=== PATIENT | female | born 1970 | race American Indian/Alaskan Native ===

== ENCOUNTER 2016-09-30 12:11 | Emergency (ER) | payer MEDICAID, MEDICARE ==
[2016-09-30] MEDS ORDERED: DUONEB *Not for PRN Use IH ONE (12:23)
[2016-09-30] MEDS ORDERED: BENADRYL IV ONE (12:23)
--- NOTE | 2016-09-30 12:23 | Emergency Department Report ---
Chief Complaint: Allergic Reaction Stated Complaint: ALLERGIC TO OATS Time Seen by Provider: 09/30/16 12:20 - HPI History of Present Illness: PT c/o Fruit loop allergy. PT states she did not know that Fruit loops contained oats. PT c/o itching after she ate. PT states she felt her asthma flare up. - ROS Review of Systems: + itching + asthma exacerbation - Exam Physical Exam: PT looks well, non toxic no wheezing noted MSE screening note: Focused history and physical exam performed. Due to findings the following was ordered: meds ED Disposition for MSE Condition: Stable
[2016-09-30 12:24] VITALS: BP 115/74
[2016-09-30] MEDS ORDERED: PEPCID IV ONE (12:29)
--- NOTE | 2016-09-30 22:02 | Emergency Department Report ---
Entered by LUZ MCCLELLAN, acting as scribe for EZEQUIEL ROSADO NP. ED Allergic Reaction HPI - General Chief complaint: Allergic Reaction Stated complaint: ALLERGIC TO OATS Time Seen by Provider: 09/30/16 12:20 Source: patient Mode of arrival: Ambulatory Limitations: No Limitations - History of Present Illness Initial Comments: This is a 46 year old female, nontoxic, well nourished in appearance, no acute signs of distress presents with her with an allergic reaction that occurred yesterday. Patient's states patient has an allergic reaction to fruit loops which contains oats and had similar symptoms in the past. Patient reports itching, mild SOB, and tightness in chest, but stated all symptoms subsided currtenly but still has mild itching. Patient denies rash, headache, dizziness, chest pain, numbness, tingling, abd pain, facial swelling, drooling, difficulty breathing, nausea, and vomiting. Patients has PMHx of asthma and DM. Patient is currently allergic to oats. MD Complaint: allergic reaction (oats inside fruit loops) Onset/Timin -: Gradual, days(s) Exposure: food Symptoms: itching. denies: rash, facial swelling, lip swelling, difficulty swallowing, difficulty breathing, orolingual swelling, hoarseness, syncopy, dizziness, nausea, vomiting, abdominal pain Severity: moderate Treatment Prior to Arrival: none Previous Allergy History: other (allergic to oats) - Related Data Previous Rx's Medication Instructions Recorded Last Taken Type diphenhydrAMINE [Benadryl CAP] 50 mg PO Q8HR PRN #15 capsule 09/30/16 Unknown Rx Allergies Allergy/AdvReac Type Severity Reaction Status Date / Time oats AdvReac Swelling Verified 09/30/16 12:19 ED Review of Systems Comment: All other systems reviewed and negative Constitutional: denies: chills, fever Eyes: denies: eye pain, eye discharge, vision change ENT: denies: ear pain, throat pain Respiratory: denies: cough, shortness of breath, wheezing Cardiovascular: denies: chest pain, palpitations Endocrine: no symptoms reported Gastrointestinal: denies: abdominal pain, nausea, diarrhea Genitourinary: denies: urgency, dysuria, discharge Musculoskeletal: denies: back pain, joint swelling, arthralgia Skin: denies: rash, lesions Neurological: denies: headache, weakness, paresthesias Psychiatric: denies: anxiety, depression Hematological/Lymphatic: denies: easy bleeding, easy bruising ED Past Medical Hx - Past Medical History Hx Diabetes: Yes Hx Asthma: Yes - Social History Smoking Status: Never Smoker - Medications Home Medications: Home Medications Medication Instructions Recorded Confirmed Last Taken Type diphenhydrAMINE [Benadryl CAP] 50 mg PO Q8HR PRN #15 capsule 09/30/16 Unknown Rx ED Physical Exam - General Limitations: No Limitations General appearance: alert, in no apparent distress - Head Head exam: Present: atraumatic, normocephalic, normal inspection - Eye Eye exam: Present: normal appearance, PERRL, EOMI. Absent: scleral icterus, conjunctival injection, nystagmus, periorbital swelling, periorbital tenderness Pupils: Present: normal accommodation. Absent: irregular - ENT ENT exam: Present: normal exam, normal orophraynx, mucous membranes moist, TM's normal bilaterally, normal external ear exam - Expanded ENT Exam Expanded Ear exam: Present: normal external inspection Mouth exam: Present: normal external inspection, tongue normal. Absent: drooling, trismus, muffled voice, tongue elevation, laceration Teeth exam: Present: normal inspection Throat exam: Positive: normal inspection, other (Uvula midline. No signs of angioedema.). Negative: tonsillar erythema, tonsillomegaly, tonsillar exudate, R peritonsillar mass, L peritonsillar mass - Neck Neck exam: Present: normal inspection, full ROM. Absent: tenderness, meningismus, lymphadenopathy, thyromegaly - Respiratory Respiratory exam: Present: normal lung sounds bilaterally. Absent: respiratory distress, wheezes, rales, rhonchi, stridor, chest wall tenderness, accessory muscle use, decreased breath sounds, prolonged expiratory - Cardiovascular Cardiovascular Exam: Present: regular rate, normal rhythm, normal heart sounds. Absent: bradycardia, tachycardia, irregular rhythm, systolic murmur, diastolic murmur, rubs, gallop - GI/Abdominal GI/Abdominal exam: Present: soft, normal bowel sounds - Rectal Rectal exam: Present: deferred - Extremities Exam Extremities exam: Present: normal inspection, full ROM, normal capillary refill. Absent: tenderness, pedal edema, joint swelling, calf tenderness - Back Exam Back exam: Present: normal inspection, full ROM. Absent: tenderness, CVA tenderness (R), CVA tenderness (L), muscle spasm, paraspinal tenderness, vertebral tenderness, rash noted - Neurological Exam Neurological exam: Present: alert, oriented X3, CN II-XII intact, normal gait, reflexes normal - Psychiatric Psychiatric exam: Present: normal affect, normal mood - Skin Skin exam: Present: warm, dry, intact, normal color. Absent: rash, cyanosis, diaphoretic, erythema, urticaria, vesicles, petechiae, pallor, abrasion, ecchymosis ED Course Vital Signs 09/30/16 12:20 Temperature 98.2 F Pulse Rate 98 H Respiratory 18 Rate Blood Pressure 115/74 O2 Sat by Pulse 100 Oximetry - Reevaluation(s) Reevaluation #1: 09/30/16 13:36 Patient is talking in full sentences with no signs of distress noted. Reevaluation #2: 09/30/16 13:38 Posttreatment of Benadryl, DuoNeb, and Pepcid IV; patient stated feels much better and itching has subsided. Reevaluation #3: 09/30/16 13:38 Patient is smiling and talking to with no signs of distress. ED Medical Decision Making - Medical Decision Making Ed course: This is a 46-year-old female that presents with allergic reaction to oats 1- patient was examined by myself. Patient is able to talk in full sentences with no signs of distress. No signs of angioedema. No facial swelling. No hives. No wheezing. No SOB. Stated still has mild itching. 2- Patient received Benadryl, DuoNeb, and Pepcid IV in the ED. Patient states feels much better area itching has subsided. 3- Patient was d/c with benadryl and was instructed to avoid oats and follow-up with a primary care doctor in 24 hours for evaluation of allergic reaction and possibility to receving an Epi pen for emergency situations or if symptoms such as shortness of breath, difficulty breathing, facial swelling, chest pain, return to emergency room as soon as possible.\. Patient agrees to f/u with PCP by tomorrow. 4- at time time of discharge, the patient does not seem toxic or ill in appearance. No acute signs of distress noted. Patient agrees to discharge treatment plan of care. No further questions noted by the patient. 5- patient was instructed not to operate any machinery as a discharge from the ED due to sedation/drowsiness of Benadryl that was received in the emergency room. Patient's is currently present that he will draw the patient home. Patient is also instructed not to operate heavy machinery while taking Benadryl at home due to sedation/drowsiness. ED Disposition Clinical Impression: Allergic reaction Qualifiers: Encounter type: initial encounter Qualified Code(s): T78.40XA - Allergy, unspecified, initial encounter Disposition: DC- TO HOME OR SELFCARE Is pt being admited?: No Does the pt Need Aspirin: No Condition: Stable Instructions: Diphenhydramine (By mouth), Food Allergy (ED), Allergies (ED) Additional Instructions: follow-up with a primary care doctor in 24 hours for evaluation of allergic reaction and possibility to receving an Epi pen for emergency situations or if symptoms such as shortness of breath, difficulty breathing, facial swelling, chest pain, return to emergency room as soon as possible Do not operate heavy machinery while taking Benadryl due to sedation drowsiness. Have someone else drive your after discharge from the hospital Due To Medical Treatment of Benadryl in the ED and Drowsiness/Sedation. Prescriptions: diphenhydrAMINE [Benadryl CAP] 50 mg PO Q8HR PRN #15 capsule PRN Reason: Itching Referrals: PRIMARY CARE, [Primary Care Provider] - 24 Hours VERITO GIBSON JR, MD [Staff Physician] - 3-5 Days [facility] [Outside] - 3-5 Days [facility] [Outside] - 3-5 Days Forms: Work/School Release Form(ED) This documentation as recorded by the VY connor PEARL,accurately reflects the service I personally performed and the decisions made by me,EZEQUIEL ROSADO, OVERHEAD CLE[employer]ER.
== END 2016-09-30 14:30 | disposition home or self-care (01) ==
LOC: ED 12:11
DX: T78.40XA Allergy, unspecified, initial encounter (principal); Y92.9 Unspecified place or not applicable; E11.9 Type 2 diabetes mellitus without complications; J45.909 Unspecified asthma, uncomplicated
CPT/HCPCS: 94640; 96374; 96375; 99282; J1200

== ENCOUNTER 2016-11-03 14:16 | Emergency (ER) | payer MEDICARE ==
[2016-11-03 17:44] VITALS: BP 115/77
--- NOTE | 2016-11-03 17:50 | Cat Scan Report ---
FINAL REPORT PROCEDURE: CT orbits and mastoid air cells without contrast. TECHNIQUE: Computerized axial tomography of the orbits was performed without contrast material. HISTORY: Mastoid tenderness. COMPARISON: No prior studies are available for comparison. FINDINGS: The orbital contents appear normal. Both globes appear intact. The optic nerves are unremarkable. The extraocular muscles appear normal. The mastoid air cells are clear. There is a small mucous retention cyst in the left sphenoid sinus. IMPRESSION: No significant abnormality.
--- NOTE | 2016-11-03 22:31 | Emergency Department Report ---
Entered by JASON FALCON, acting as scribe for EZEQUIEL ROSADO NP. ED ENT HPI - General Chief complaint: Earache Stated complaint: EAR BLEEDING Time Seen by Provider: 11/03/16 16:23 Source: patient Mode of arrival: Ambulatory Limitations: No Limitations - History of Present Illness Initial comments: This is a 46 y/o female, nontoxic, well nourished in appearance, no acute signs of distress presents with right ear pain, discharge, and hearing loss x 1 week. Associated symptoms include drainage and hearing loss but she denies fever, chills, nausea, stiff neck, headache, chest pain, shortness of breathe, and vomiting. Pain is described as 10/10 on a severity scale. Patient states she was treated for right ear infection last week but symptoms became worse yesterday. Taking antibiotics, Tylenol and applying drops to right ear with no relief. Seen by PCP on 10/24/16 and missed appointment with ENT specialist on . No alleviating or aggravating factors. NKDA. LMP: 08/30/16. complaint: ear pain Onset/Timin -: week(s) Location: R ear Severity: severe Severity scale (0 -10): 10 Consistency: constant Improves with: none Worsens with: none Context- Ear: recent illness Associated Symptoms: hearing loss, discharge from ear. denies: fever, cough, gum swelling, toothache, pain with swallowing, sore throat, tinnitus, rhinorrhea , other (fever, chills, nausea, vomiting) - Related Data Previous Rx's Medication Instructions Recorded Last Taken Type diphenhydrAMINE [Benadryl CAP] 50 mg PO Q8HR PRN #15 capsule 09/30/16 Unknown Rx Amoxicillin/K Clav Tab [Augmentin 1 tab PO Q12HR #20 tab 11/03/16 Unknown Rx 875 mg] Allergies Allergy/AdvReac Type Severity Reaction Status Date / Time aspirin Allergy Shortness Verified 11/03/16 14:23 of Breath oats Allergy Swelling Verified 11/03/16 14:23 ED Dental HPI - General Chief complaint: Earache Stated complaint: EAR BLEEDING Time Seen by Provider: 11/03/16 16:25 Source: patient Mode of arrival: Ambulatory Limitations: No Limitations - Related Data Previous Rx's Medication Instructions Recorded Last Taken Type diphenhydrAMINE [Benadryl CAP] 50 mg PO Q8HR PRN #15 capsule 09/30/16 Unknown Rx Amoxicillin/K Clav Tab [Augmentin 1 tab PO Q12HR #20 tab 11/03/16 Unknown Rx 875 mg] Allergies Allergy/AdvReac Type Severity Reaction Status Date / Time aspirin Allergy Shortness Verified 11/03/16 14:23 of Breath oats Allergy Swelling Verified 11/03/16 14:23 ED Review of Systems Comment: All other systems reviewed and negative Constitutional: denies: chills, fever Eyes: denies: eye pain, eye discharge, vision change ENT: ear pain, hearing loss, other (discharge) Respiratory: denies: cough, shortness of breath, wheezing Cardiovascular: denies: chest pain, palpitations Endocrine: no symptoms reported Gastrointestinal: denies: nausea, vomiting Genitourinary: denies: urgency, dysuria, discharge Musculoskeletal: denies: back pain, joint swelling, arthralgia Skin: denies: rash, lesions Neurological: denies: headache, weakness, paresthesias Psychiatric: denies: anxiety, depression Hematological/Lymphatic: denies: easy bleeding, easy bruising ED Past Medical Hx - Past Medical History Hx Diabetes: Yes Hx Asthma: Yes - Surgical History Additional Surgical History: LEFT OVARY AND CYST REMOVED - Social History Smoking Status: Never Smoker Substance Use Type: None - Medications Home Medications: Home Medications Medication Instructions Recorded Confirmed Last Taken Type diphenhydrAMINE [Benadryl CAP] 50 mg PO Q8HR PRN #15 capsule 09/30/16 Unknown Rx Amoxicillin/K Clav Tab [Augmentin 1 tab PO Q12HR #20 tab 11/03/16 Unknown Rx 875 mg] ED Physical Exam - General Limitations: No Limitations General appearance: alert, in no apparent distress - Head Head exam: Present: atraumatic, normocephalic, normal inspection - Eye Eye exam: Present: normal appearance, PERRL, EOMI. Absent: scleral icterus, conjunctival injection, nystagmus, periorbital swelling, periorbital tenderness Pupils: Present: normal accommodation - ENT ENT exam: Present: mucous membranes moist - Expanded ENT Exam Expanded Ear exam: Present: normal external inspection TM/Canal exam: Erythema: Left TM, Bulging: Left TM, Mastoid Tenderness: Left TM , Canal Discharge: Left TM, Canal Tenderness: Left TM Mouth exam: Present: normal external inspection, tongue normal. Absent: drooling, trismus, muffled voice, tongue elevation, laceration Teeth exam: Present: normal inspection Throat exam: Positive: normal inspection. Negative: tonsillar erythema, tonsillomegaly, tonsillar exudate, R peritonsillar mass, L peritonsillar mass - Neck Neck exam: Present: normal inspection, full ROM. Absent: tenderness, meningismus, lymphadenopathy, thyromegaly - Respiratory Respiratory exam: Present: normal lung sounds bilaterally. Absent: respiratory distress, wheezes, rales, rhonchi, stridor, chest wall tenderness, accessory muscle use, decreased breath sounds, prolonged expiratory - Cardiovascular Cardiovascular Exam: Present: regular rate, normal rhythm, normal heart sounds. Absent: bradycardia, tachycardia, irregular rhythm, systolic murmur, diastolic murmur, rubs, gallop - GI/Abdominal GI/Abdominal exam: Present: soft, normal bowel sounds. Absent: distended, tenderness, guarding, rebound, rigid, diminished bowel sounds, hyperactive bowel sounds, hypoactive bowel sounds, organomegaly - Extremities Exam Extremities exam: Present: normal inspection, full ROM, normal capillary refill. Absent: tenderness, pedal edema, joint swelling, calf tenderness - Back Exam Back exam: Present: normal inspection, full ROM. Absent: tenderness, CVA tenderness (R), CVA tenderness (L), muscle spasm, paraspinal tenderness, vertebral tenderness, rash noted - Neurological Exam Neurological exam: Present: alert, oriented X3, CN II-XII intact, normal gait, reflexes normal - Psychiatric Psychiatric exam: Present: normal affect, normal mood - Skin Skin exam: Present: warm, dry, intact, normal color. Absent: rash ED Course Vital Signs 11/03/16 11/03/16 14:25 17:44 Temperature 98.4 F 98.5 F Pulse Rate 94 H 89 Respiratory 17 16 Rate Blood Pressure 123/81 Blood Pressure 115/77 [Right] O2 Sat by Pulse 99 98 Oximetry - Reevaluation(s) Reevaluation #1: 11/03/16 17:23 Patient is speaking in full sentences with no signs of distress noted. - Consultations Consultation #1: 11/03/16 17:23 Patient was consulted with Dr. Hernandez and agrees to the plan of care in the ED with CT exam. Consultation #2: 11/03/16 18:14 Dr. Hernandez has been consulted about CT findings and patients exam. D/c with Augmentin and f/p with ENT in 24 hours. ED Medical Decision Making - Medical Decision Making Ed course: This is a 46-year-old female that presents to the ED with otitis media 1- patient was examined by myself and Dr. Hernandez. Dr. Hernandez was consulted and agrees to the patient plan of care. CT of orbits/mastoid has been obtained with negative findings of any abnormality. Patient was notified of CT findings with no further questions noted by the patient. 2- Patient stated does not remember the name of antibiotics that was prescribed and has been taking for otitis media but stated has been taking it 3 times a day. 3- Patient received augmentin at d/c and was instructed to strict follow-up with ENT within 254 hours or if symptoms worsen and continue return to the emergency room as soon as possible. 4- at the time of d/c, patient agrees to the treatment plan of care. Pt is not toxic or ill in appearance. ED Disposition Clinical Impression: Otitis media Qualifiers: Otitis media type: unspecified Chronicity: unspecified Laterality: right Qualified Code(s): H66.91 - Otitis media, unspecified, right ear Disposition: DC-01 TO HOME OR SELFCARE Is pt being admited?: No Does the pt Need Aspirin: No Condition: Stable Instructions: Otitis Media (ED), Amoxicillin/Clavulanate Potassium (By mouth) Additional Instructions: STRICT follow-up with ENT within 24 hours or if symptoms worsen and continue return to the emergency room as soon as possible. Take full course of antibiotics as prescribed Prescriptions: Amoxicillin/K Clav Tab [Augmentin 875 mg] 1 tab PO Q12HR #20 tab Referrals: MARTHA HAYES MD [Primary Care Provider] - 3-5 Days [facility] [Outside] - 3-5 Days [facility] [Outside] - 3-5 Days JAYLEEN JAQUEZ MD [Staff Physician] - 24 Hours Forms: Work/School Release Form(ED) This documentation as recorded by the TERRIE connor ELIZABETH,accurately reflects the service I personally performed and the decisions made by ,EZEQUIEL ROSADO, PATI.
== END 2016-11-03 19:48 | disposition home or self-care (01) ==
LOC: ED 14:16
DX: H66.91 Otitis media, unspecified, right ear (principal); E11.9 Type 2 diabetes mellitus without complications; J45.909 Unspecified asthma, uncomplicated; Z88.6 Allergy status to analgesic agent; Z91.018 Allergy to other foods
CPT/HCPCS: 70480; 82962

== ENCOUNTER 2017-04-06 10:07 | Emergency (ER) | payer MEDICARE ==
--- NOTE | 2017-04-06 11:11 | XRay Report ---
ROUTINE CHEST, TWO VIEWS: HISTORY: Shortness of breath. The trachea, heart, mediastinal contour, lung hsu and bony thorax are unremarkable. IMPRESSION: Unremarkable chest x-ray.
[2017-04-06 11:23] LABS: Basophils % (Auto) 0.6 % (0.0-1.8); Eosinophils % (Auto) 0.8 % (0.0-4.3); Hematocrit 40.6 % (30.3-42.9); Hemoglobin 13.1 gm/dl (10.1-14.3); Lymphocytes # (Auto) 2.7 K/mm3 (1.2-5.4); Lymphocytes % (Auto) 48.2 % (13.4-35.0); Mean Corpuscular HGB Conc 32 % (30-34); Mean Corpuscular Hemoglobin 27 pg (28-32); Mean Corpuscular Volume 82 fl (79-97); Monocytes # (Auto) 0.5 K/mm3 (0.0-0.8); Monocytes % (Auto) 8.3 % (0.0-7.3); Platelet Count 260 K/mm3 (140-440); Red Blood Count 4.93 M/mm3 (3.65-5.03)
[2017-04-06 11:42] LABS: BUN/Creatinine Ratio 13; Blood Urea Nitrogen 8 mg/dL (7-17); Calcium 9.1 mg/dL (8.4-10.2); Hemolysis Index 17
[2017-04-06 21:19] VITALS: BP 115/71
== END 2017-04-06 22:15 | disposition left against medical advice (07) ==
LOC: ED 10:07
DX: R07.9 Chest pain, unspecified (principal); Z53.21 Procedure and treatment not carried out due to patient leaving prior to being seen by health care provider
CPT/HCPCS: 36415; 71046; 80048; 84484; 85025; 93005; 93010

== ENCOUNTER 2020-01-31 19:14 | Emergency (ER) | payer MEDICARE ==
--- NOTE | 2020-01-31 21:58 | Event Note ---
ED Screening Note ED Screening Note: Patient presents for generalized body aches, abdominal pain, nausea, vomiting, diarrhea that began at 4 AM this morning She states that her stools have been dark She denies any fever or dysuria Past medical history of diabetes No allergies to medications This initial assessment/diagnostic orders/clinical plan/treatment(s) is/are subject to change based on patients health status, clinical progression and re- assessment by fellow clinical providers in the ED. Further treatment and workup at subsequent clinical providers discretion. Patient/guardian urged not to elope from the ED as their condition may be serious if not clinically assessed and managed. Initial orders include: Labs, urine
[2020-01-31 23:13] LABS: Bilirubin,Urine NEG (Negative); Blood,Urine NEG (Negative); Color,Urine Straw (Yellow); Mucus,Urine FEW /HPF; Protein,Urine <15 mg/dL mg/dL (Negative); RBC,Urine < 1.0 /HPF (0.0-6.0); Urobilinogen,Urine < 2.0 mg/dL (<2.0); WBC,Urine < 1.0 /HPF (0.0-6.0)
[2020-01-31 23:20] LABS: HCG Qualitative,Urine Negative (Negative)
[2020-01-31 23:49] LABS: Hematocrit 39.8 % (30.3-42.9); Mean Corpuscular HGB Conc 33 % (30-34); Mean Corpuscular Volume 84 fl (79-97); Platelet Count 236 K/mm3 (140-440); Red Blood Count 4.75 M/mm3 (3.65-5.03); Red Cell Distribution Width 13.6 % (13.2-15.2)
[2020-01-31 23:51] LABS: Basophils % (Auto) 0.2 % (0.0-1.8); Eosinophils % (Auto) 0.9 % (0.0-4.3); Monocytes % (Auto) 10.2 % (0.0-7.3)
[2020-01-31 23:52] LABS: Lymphocytes # (Auto) 3.4 K/mm3 (1.2-5.4); Monocytes # (Auto) 0.5 K/mm3 (0.0-0.8)
[2020-02-01 00:27] LABS: BUN/Creatinine Ratio 10; Blood Urea Nitrogen 7 mg/dL (7-17)
[2020-02-01 00:28] LABS: Alanine Aminotransferase 16 units/L (7-56); Albumin 4.1 g/dL (3.9-5); Calcium 9.6 mg/dL (8.4-10.2); Hemolysis Index 2
[2020-02-01] MEDS ORDERED: ACETAMINOPHEN 325 MG TAB PO ONE (01:28)
[2020-02-01] MEDS ORDERED: FAMOTIDINE 20 MG TAB PO ONE (01:28)
[2020-02-01] MEDS ORDERED: ONDANSETRON 4 MG ODT TAB PO ONE (01:28)
[2020-02-01] MEDS ORDERED: HYOSCYAMINE SUBL 0.125 MG TAB SL ONE (01:28)
--- NOTE | 2020-02-01 02:26 | Emergency Department Report ---
ED General Adult HPI - General Chief complaint: Pain General Stated complaint: FEVER, BODY ACHES, VOMITING Time Seen by Provider: 01/31/20 21:58 Source: patient Mode of arrival: Ambulatory Limitations: No Limitations - History of Present Illness Initial comments: Patient is a 49-year-old female presents emergency room with complaints of generalized body aches and abdominal pain that began at 4 AM this morning. she states the abd pain is a cramping sensation. she has associated nausea, vomiting, and diarrhea. she states that her stools have been dark but denies any black tarry stools or hematochezia. She denies any fever or dysuria. She denies any chest pain or shortness of breath.Past medical history of diabetes No allergies to medications. Her has similar symptoms and has been running a fever. Severity scale (0 -10): 3 - Related Data Previous Rx's Medication Instructions Recorded Last Taken Type diphenhydrAMINE [Benadryl CAP] 50 mg PO Q8HR PRN #15 capsule 09/30/16 Unknown Rx Amoxicillin/K Clav Tab [Augmentin 1 tab PO Q12HR #20 tab 11/03/16 Unknown Rx 875 mg] Acetaminophen/Codeine [Tylenol 1 tab PO Q6H PRN #12 tab 10/24/17 Unknown Rx /Codeine # 3 tab] Lidocaine Viscous 2% 10 ml MM Q3H PRN #60 ml 10/24/17 Unknown Rx Penicillin V Potassium 500 mg PO BID #20 tablet 10/24/17 Unknown Rx Ibuprofen [Motrin] 800 mg PO Q8HR PRN #30 tablet 03/04/18 Unknown Rx Magnesium Citrate [Citrate of 300 ml PO NOW #1 bottle 03/04/18 Unknown Rx Magnesia] Acetaminophen [Tylenol] 650 mg PO Q8HR PRN #20 capsule 02/01/20 Unknown Rx Hyoscyamine Subl [Levsin Sl 0.125 0.125 mg SL Q6HR PRN #5 tab 02/01/20 Unknown Rx TAB] Ondansetron [Zofran Odt] 4 mg PO Q8HR PRN #7 tab.rapdis 02/01/20 Unknown Rx Allergies Allergy/AdvReac Type Severity Reaction Status Date / Time aspirin Allergy Shortness Verified 10/24/17 09:40 of Breath oats Allergy Swelling Verified 10/24/17 09:40 ED Review of Systems ROS: Stated complaint: FEVER, BODY ACHES, VOMITING Other details as noted in HPI Comment: All other systems reviewed and negative ED Past Medical Hx - Past Medical History Hx Diabetes: Yes Hx Asthma: Yes - Surgical History Additional Surgical History: LEFT OVARY AND CYST REMOVED - Social History Smoking Status: Never Smoker Substance Use Type: None - Medications Home Medications: Home Medications Medication Instructions Recorded Confirmed Last Taken Type diphenhydrAMINE [Benadryl CAP] 50 mg PO Q8HR PRN #15 capsule 09/30/16 Unknown Rx Amoxicillin/K Clav Tab [Augmentin 1 tab PO Q12HR #20 tab 11/03/16 Unknown Rx 875 mg] Acetaminophen/Codeine [Tylenol 1 tab PO Q6H PRN #12 tab 10/24/17 Unknown Rx /Codeine # 3 tab] Lidocaine Viscous 2% 10 ml MM Q3H PRN #60 ml 10/24/17 Unknown Rx Penicillin V Potassium 500 mg PO BID #20 tablet 10/24/17 Unknown Rx Ibuprofen [Motrin] 800 mg PO Q8HR PRN #30 tablet 03/04/18 Unknown Rx Magnesium Citrate [Citrate of 300 ml PO NOW #1 bottle 03/04/18 Unknown Rx Magnesia] Acetaminophen [Tylenol] 650 mg PO Q8HR PRN #20 capsule 02/01/20 Unknown Rx Hyoscyamine Subl [Levsin Sl 0.125 0.125 mg SL Q6HR PRN #5 tab 02/01/20 Unknown Rx TAB] Ondansetron [Zofran Odt] 4 mg PO Q8HR PRN #7 tab.rapdis 02/01/20 Unknown Rx ED Physical Exam - General Limitations: No Limitations General appearance: alert, in no apparent distress - Head Head exam: Present: atraumatic, normocephalic - Eye Eye exam: Present: normal appearance - ENT ENT exam: Present: mucous membranes moist - Respiratory Respiratory exam: Present: normal lung sounds bilaterally. Absent: respiratory distress, wheezes, rales, rhonchi, stridor, chest wall tenderness, accessory muscle use, decreased breath sounds, prolonged expiratory - Cardiovascular Cardiovascular Exam: Present: regular rate, normal rhythm, normal heart sounds. Absent: systolic murmur, diastolic murmur, rubs, gallop - GI/Abdominal GI/Abdominal exam: Present: soft, normal bowel sounds. Absent: distended, tenderness, guarding, rebound, rigid - Neurological Exam Neurological exam: Present: alert, oriented X3 - Psychiatric Psychiatric exam: Present: normal affect, normal mood - Skin Skin exam: Present: warm, dry, intact ED Course Vital Signs 01/31/20 19:51 Temperature 98.4 F Pulse Rate 91 H Respiratory 18 Rate Blood Pressure 127/73 O2 Sat by Pulse 98 Oximetry ED Medical Decision Making - Lab Data Result diagrams: 01/31/20 22:25 01/31/20 22:25 Lab Results 01/31/20 01/31/20 01/31/20 Range/Units 22:25 22:25 Unknown WBC 5.1 (4.5-11.0) K/mm3 RBC 4.75 (3.65-5.03) M/mm3 Hgb 13.0 (10.1-14.3) gm/dl Hct 39.8 (30.3-42.9) % MCV 84 (79-97) fl MCH 27 L (28-32) pg MCHC 33 (30-34) % RDW 13.6 (13.2-15.2) % Plt Count 236 (140-440) K/mm3 Lymph % (Auto) Software [employer] [place] % (Auto) 10.2 H (0.0-7.3) % Eos % (Auto) 0.9 (0.0-4.3) % Baso % (Auto) 0.2 (0.0-1.8) % Lymph # (Auto) 3.4 (1.2-5.4) K/mm3 [place] # (Auto) 0.5 (0.0-0.8) K/mm3 Eos # (Auto) 0.0 (0.0-0.4) K/mm3 Baso # (Auto) 0.0 (0.0-0.1) K/mm3 Seg Neutrophils % Software Trainer Seg Neutrophils # 1.1 L (1.8-7.7) K/mm3 Sodium 142 (137-145) mmol/L Potassium 4.5 (3.6-5.0) mmol/L Chloride 104.4 (98-107) mmol/L Carbon Dioxide 26 (22-30) mmol/L Anion Gap 16 mmol/L BUN 7 (7-17) mg/dL Creatinine 0.7 (0.6-1.2) mg/dL Estimated GFR > 60 ml/min BUN/Creatinine Ratio 10 % Glucose 152 H (65-100) mg/dL Calcium 9.6 (8.4-10.2) mg/dL Total Bilirubin 0.20 (0.1-1.2) mg/dL AST 17 (5-40) units/L ALT 16 (7-56) units/L Alkaline Phosphatase 127 (35-129) units/L Total Protein 8.0 (6.3-8.2) g/dL Albumin 4.1 (3.9-5) g/dL Albumin/Globulin Ratio 1.1 % Lipase 28 (13-60) units/L Urine Color Straw (Yellow) Urine Turbidity Clear (Clear) Urine pH 5.0 (5.0-7.0) Ur Specific [place] 1.010 (1.003-1.030) Urine Protein <15 mg/dl (Negative) mg/dL Urine Glucose (UA) Neg (Negative) mg/dL Urine Ketones Neg (Negative) mg/dL Urine Blood Neg (Negative) Urine Nitrite Neg (Negative) Urine Bilirubin Neg (Negative) Urine Urobilinogen < 2.0 (<2.0) mg/dL Ur Leukocyte Esterase Neg (Negative) Urine WBC (Auto) < 1.0 (0.0-6.0) /HPF Urine RBC (Auto) < 1.0 (0.0-6.0) /HPF U Epithel Cells (Auto) 2.0 (0-13.0) /HPF Urine Mucus Few /HPF Urine HCG, Qual Negative (Negative) - Medical Decision Making Patient is a 49-year-old female presents emergency room with complaints of generalized body aches and abdominal pain that began at 4 AM this morning. she states the abd pain is a cramping sensation. she has associated nausea, vomiting, and diarrhea. she states that her stools have been dark but denies any black tarry stools or hematochezia. She denies any fever or dysuria. She denies any chest pain or shortness of breath.Past medical history of diabetes No allergies to medications. Her has similar symptoms and has been running a fever. Vitals are normal. On exam no abdominal tenderness palpation, no guarding, no rebound, no rigidity, normal bowel sounds, no peritoneal signs, moist mucous membranes. Labs are stable. UA is within normal limits. Urine is negative. Given Tylenol, Pepcid, Levsin, Zofran while in the emergency department and symptoms improved. Patient was able to tolerate p.o. intake without difficulty. She had no episodes of vomiting or diarrhea while in the emergency department. Given that her has similar symptoms likely viral in origin. Patient is presenting with the symptoms during COVID-19 pandemic, discussed the possibility of COVID-19 with patient, discussed strict return precautions, discussed outpatient testing, discussed self quarantine. Patient given prescription for Tylenol, Levsin, Zofran. Advised patient please take medication as prescribed. Please increase your fluid intake over the next several days. Please eat a bland liquid diet and slowly advance your diet as tolerated. May take Tylenol as needed for fever or body aches. May take [id number] cold symptom relief medication such as Mucinex or TheraFlu. Follow-up with a primary care doctor for reexamination. Return to emergency room immediately for any new or worsening symptoms including but not limited to difficulty breathing, shortness of breath, severe chest pain, unable to tolerate by mouth intake, etc. Please self quarantine for 10 days from the onset of your symptoms. Please do not go out in public. If you are around others at home please wear a mask. If you need to cough or sneeze please do so in a napkin and immediately throw it away and immediately wash your hands. Wash your hands frequently. Wipe everything down. Recommend for you to get COVID-19 testing, may have this done at primary care doctor, health department, [facility] testing center. Critical care attestation.: If time is entered above; I have spent that time in minutes in the direct care of this critically ill patient, excluding procedure time. ED Disposition Clinical Impression: Nausea vomiting and diarrhea, Abdominal cramping, Generalized body aches Disposition: DC-01 TO HOME OR SELFCARE Is pt being admited?: No Does the pt Need Aspirin: No Condition: Stable Instructions: Viral Gastroenteritis, Adult, COVID-19, COVID-19: How to Protect Yourself and Others - CDC, Prevent the Spread of COVID-19 if You Are Sick - [facility] Additional Instructions: please take medication as prescribed. Please increase your fluid intake over the next several days. Please eat a bland liquid diet and slowly advance your diet as tolerated. May take Tylenol as needed for fever or body aches. May jolanta e [id number] cold symptom relief medication such as Mucinex or TheraFlu. Follow-up with a primary care doctor for reexamination. Return to emergency room immediately for any new or worsening symptoms including but not limited to difficulty breathing, shortness of breath, severe chest pain, unable to tolerate by mouth intake, etc. Please self quarantine for 10 days from the onset of your symptoms. Please do not go out in public. If you are around others at home please wear a mask. If you need to cough or sneeze please do so in a napkin and immediately throw it away and immediately wash your hands. Wash your hands frequently. Wipe everything down. Recommend for you to get COVID-19 testing, may have this done at primary care doctor, health department, [facility] testing center. Prescriptions: Hyoscyamine Subl [Levsin Sl 0.125 TAB] 0.125 mg SL Q6HR PRN #5 tab PRN Reason: abdominal cramping/diarrhea Acetaminophen [Tylenol] 650 mg PO Q8HR PRN #20 capsule PRN Reason: fever or body aches Ondansetron [Zofran Odt] 4 mg PO Q8HR PRN #7 tab.rapdis PRN Reason: Nausea And Vomiting Referrals: MARTHA HAYES MD [Primary Care Provider] - 2-3 Days Time of Disposition: 02:27 Print Language: [id number]
[2020-02-01 07:51] VITALS: BP 122/81
== END 2020-02-01 02:40 | disposition home or self-care (01) ==
LOC: ED 19:14
DX: R10.9 Unspecified abdominal pain (principal); R11.2 Nausea with vomiting, unspecified; R19.7 Diarrhea, unspecified; E11.9 Type 2 diabetes mellitus without complications; J45.909 Unspecified asthma, uncomplicated; Z98.890 Other specified postprocedural states; Z79.1 Long term (current) use of non-steroidal anti-inflammatories (NSAID); Z79.2 Long term (current) use of antibiotics; Z79.899 Other long term (current) drug therapy; Z88.8 Allergy status to other drugs, medicaments and biological substances
CPT/HCPCS: 36415; 80053; 81001; 81025; 83690; 85025; Q0162